=== PATIENT | female | born 1985 | race African-American/Black ===

== ENCOUNTER → 2017-02-01 | Outpatient (CLI) | payer MEDICAID ==
--- NOTE | 2017-02-01 18:08 | WOMENS IMAGING REPORT ---
EXAM DESCRIPTION: LEFT DIAGNOSTIC MAMMO W/CAD; U/S BREAST UNILATERAL, COMPL COMPLETED DATE/TIME: 02/01/2017 8:31 am; 02/01/2017 8:53 am REASON FOR STUDY: LEFT BREAST MASS; LEFT BREAST LUMP N63.0 N63 UNSPECIFIED LUMP IN BREAST * DO NOT USE * COMPARISON: Outside mammograms and ultrasound 09/16/2016 Left breast ultrasound 11/01/2016 TECHNIQUE: Standard craniocaudal, 90 mediolateral and mediolateral oblique images of the breast rec orded with digital acquisition. Cone compression of the left central breast in the CC and MLO orientations. Left breast total ultrasound LIMITATIONS: None. FINDINGS: BREAST: Left MASSES: No suspicious masses. CALCIFICATIONS: No new or suspicious calcifications. ARCHITECTURAL DISTORTION: None. DEVELOPING DENSITY: None. ASYMMETRY: None noted. OTHER: No other significant findings. Read with the assistance of CAD. .[facility] - R2 Cenova Version 1.3 .[facility] Imaging - R2 Cenova Version 1.3 .[facility] Imaging - R2 Cenova Version 2.4 .[facility] [place]2 Cenova Version 2.4 .[facility] - R2 Quality Control Chemist Version 9.2 Left breast ultrasound: Ultrasound of the entire left breast was performed. No discrete cystic or solid lesions. No worriso me acoustic absorption. No dilated ducts. No focal findings. IMPRESSION: No mammographic or sonographic evidence for malignancy left breast. BREAST DENSITY: d. The breasts are extremely dense, which lowers the sensitivity of mammography. BIRAD: 1 Negative. RECOMMENDATION: RECOMMENDED FOLLOW UP: Patient should begin bilateral screening mammography based on her lifetime risk assessment for breast cancer (Alecia model). If she is not high risk, bilateral scr eening tomosynthesis is recommended beginning at age 40 SPECIFIC INTERVENTION/IMAGING/CONSULTATION RECOMMENDED:No additional intervention/ imaging/consultati on needed at this time. COMMUNICATION:Patient notified by letter COMMENT: The patient has been notified of the results by letter per SA requirements. Additional no tification policies are in place for contacting patient with suspicious or incomplete findings. Quality ID #[id number]: The [employer] recommends an annual screening mammogram for women aged 40 years or over. This facility utilizes a reminder system to ensure that all patients receive reminder letters, and/or direct phone calls for appointments. This includes reminders for routine scr eening mammograms, diagnostic mammograms, or other Breast Imaging Interventions when appropriate. Th is patient will be placed in the appropriate reminder system. The [employer] (ACR) has developed recommendations for screening MRI of the breast s in certain patient populations, to be used in conjunction with mammography. Breast MRI surveillanc e may be appropriate for women with more than 20% lifetime risk of developing breast cancer as deter mined by genetic testing, significant family history of the disease, or history of mantle radiation f or Hodgkins Disease. ACR Practice Guidelines 2008. TECHNICAL DOCUMENTATION: FINDING NUMBER: (1) ASSESSMENT: (1) JOB ID: [id number] [employer]- All Rights Reserved
--- NOTE | 2017-02-01 18:08 | WOMENS IMAGING REPORT ---
EXAM DESCRIPTION: LEFT DIAGNOSTIC MAMMO W/CAD; U/S BREAST UNILATERAL, COMPL COMPLETED DATE/TIME: 02/01/2017 8:31 am; 02/01/2017 8:53 am REASON FOR STUDY: LEFT BREAST MASS; LEFT BREAST LUMP N63.0 N63 UNSPECIFIED LUMP IN BREAST * DO NOT USE * COMPARISON: Outside mammograms and ultrasound 09/16/2016 Left breast ultrasound 11/01/2016 TECHNIQUE: Standard craniocaudal, 90 mediolateral and mediolateral oblique images of the breast rec orded with digital acquisition. Cone compression of the left central breast in the CC and MLO orientations. Left breast total ultrasound LIMITATIONS: None. FINDINGS: BREAST: Left MASSES: No suspicious masses. CALCIFICATIONS: No new or suspicious calcifications. ARCHITECTURAL DISTORTION: None. DEVELOPING DENSITY: None. ASYMMETRY: None noted. OTHER: No other significant findings. Read with the assistance of CAD. .[facility] - R2 Cenova Version 1.3 .[facility] Imaging - R2 Cenova Version 1.3 .[facility] Imaging - R2 Cenova Version 2.4 .[facility] - R2 Cenova Version 2.4 .[facility] - R2 Chemistry Lecturer Version 9.2 Left breast ultrasound: Ultrasound of the entire left breast was performed. No discrete cystic or solid lesions. No worriso me acoustic absorption. No dilated ducts. No focal findings. IMPRESSION: No mammographic or sonographic evidence for malignancy left breast. BREAST DENSITY: d. The breasts are extremely dense, which lowers the sensitivity of mammography. BIRAD: 1 Negative. RECOMMENDATION: RECOMMENDED FOLLOW UP: Patient should begin bilateral screening mammography based on her lifetime risk assessment for breast cancer (Alecia model). If she is not high risk, bilateral scr eening tomosynthesis is recommended beginning at age 40 SPECIFIC INTERVENTION/IMAGING/CONSULTATION RECOMMENDED:No additional intervention/ imaging/consultati on needed at this time. COMMUNICATION:Patient notified by letter COMMENT: The patient has been notified of the results by letter per SA requirements. Additional no tification policies are in place for contacting patient with suspicious or incomplete findings. Quality ID #225: The [employer] recommends an annual screening mammogram for women aged 40 years or over. This facility utilizes a reminder system to ensure that all patients receive reminder letters, and/or direct phone calls for appointments. This includes reminders for routine scr eening mammograms, diagnostic mammograms, or other Breast Imaging Interventions when appropriate. Th is patient will be placed in the appropriate reminder system. The [employer] (ACR) has developed recommendations for screening MRI of the breast s in certain patient populations, to be used in conjunction with mammography. Breast MRI surveillanc e may be appropriate for women with more than 20% lifetime risk of developing breast cancer as deter mined by genetic testing, significant family history of the disease, or history of mantle radiation f or Hodgkins Disease. ACR Practice Guidelines 2008. TECHNICAL DOCUMENTATION: FINDING NUMBER: (1) ASSESSMENT: (1) JOB ID: [id number] [employer]- All Rights Reserved
== END ==
LOC: WI 08:03
PROVIDERS: ATTEND Surgery
DX: N63.20 Unspecified lump in the left breast, unspecified quadrant (principal)
CPT/HCPCS: 76641; G0206

== ENCOUNTER 2017-09-27 23:01 | Emergency (ER) | payer OTHER, MEDICAID ==
[2017-09-27 23:16] VITALS: BP 157/88
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
[2017-09-28] MEDS ORDERED: IBUPROFEN 600 MG TABLET PO ONE (01:05)
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
== END 2017-09-28 01:20 | disposition home or self-care (01) ==
LOC: ER 23:01
DX: S46.911A Strain of unspecified muscle, fascia and tendon at shoulder and upper arm level, right arm, initial encounter (principal); M25.511 Pain in right shoulder; V43.62XA Car passenger injured in collision with other type car in traffic accident, initial encounter; R03.0 Elevated blood-pressure reading, without diagnosis of hypertension
CPT/HCPCS: 99283

== ENCOUNTER → 2018-01-04 | Outpatient (CLI) | payer MEDICAID ==
[2018-01-04 13:26] LABS: ABSOLUTE EOSINOPHILS # (AUTO) 0.3 10^3/uL (0.0-0.6); ABSOLUTE MONOCYTES (AUTO) 0.6 10^3/uL (0.1-1.4); ABSOLUTE NEUT (AUTO) 5.8 10^3/uL (1.7-8.2); BASOPHILS % (AUTO) 0.4 % (0-2); EOSINOPHILS % (AUTO) 3.5 % (0-6); HEMATOCRIT 43.4 % (36.0-47.0); HEMOGLOBIN 14.8 g/dL (12.0-15.5); LYMPHOCYTES % (AUTO) 23.5 % (13-45); MEAN CORPUSCULAR HEMOGLOBIN 30.2 pg (27.0-33.4); MEAN CORPUSCULAR VOLUME 89 fl (80-97); MONOCYTES % (AUTO) 6.5 % (3-13); PLATELET COUNT 255 10^3/uL (150-450); RED BLOOD COUNT 4.89 10^6/uL (3.72-5.28); RED CELL DISTRIBUTION WIDTH 13.6 % (11.5-14.0); SEGMENTED NEUTROPHILS % (AUTO) 66.1 % (42-78); TOTAL CELLS COUNTED % (AUTO) 100 %; WHITE BLOOD COUNT 8.7 10^3/uL (4.0-10.5)
[2018-01-04 13:41] LABS: CHOLESTEROL 162.11 mg/dL (0-200); TRIGLYCERIDES 57 mg/dL (<150)
[2018-01-04 13:52] LABS: DIRECT LDL 78 mg/dL (<100)
== END ==
LOC: OD 12:54
PROVIDERS: ATTEND Advanced Practice Midwife
DX: Z13.220 Encounter for screening for lipoid disorders (principal); Z13.0 Encounter for screening for diseases of the blood and blood-forming organs and certain disorders involving the immune mechanism; Z13.29 Encounter for screening for other suspected endocrine disorder
CPT/HCPCS: 36415; 80061; 84443; 85025

== ENCOUNTER 2018-07-14 21:24 | Emergency (ER) | payer MEDICAID, OTHER ==
[2018-07-14 21:57] VITALS: BP 127/88
[2018-07-14] MEDS ORDERED: LIDOCAINE 1% INJ-PF (10 MG/ML) 30 ML SDV INJ ONE (22:25)
[2018-07-14] MEDS ORDERED: ACETAMINOPHEN 325 MG TABLET PO ONE (22:47)
[2018-07-14] MEDS ORDERED: SULFAMETHOXAZOLE/TRIMETHOPRIM 800-160 MG TABLET PO ONE (22:47)
--- NOTE | 2018-07-14 22:53 | ER Document Report ---
ED General - General Chief Complaint: Abscess Stated Complaint: SKIN LESION Time Seen by Provider: 07/14/18 22:25 Primary Care Provider: DELIA BREAUX CNM [Primary Care Provider] - Follow up as needed TRAVEL OUTSIDE OF THE [place] IN LAST 30 DAYS: No - HPI Notes: Patient is a 33-year-old female that presents to the emergency department for chief complaint of left gluteal abscess. Patient reports increased pain and swelling in her left gluteal region for the last 5 days. The pain is sharp and worse with movement and sitting. She denies relieving factors to her pain. She denies history of abscess in the past. She denies any drainage from the area. She has been doing sitz bath with Epson salt with no relief. She did take Motrin prior to coming to the ER but reports minimal relief. She denies any difficulty with bowel movements, fever and chills. Past Medical History: Negative Past Surgical History: Negative Social History: Denies drugs alcohol and tobacco Family History: Reviewed and noncontributory for presenting illness Allergies: Reviewed, see documented allergy list. REVIEW OF SYSTEMS: CONSTITUTIONAL : no fever No chills No diaphoresis No recent illness EENT: No vision changes No congestion No sore throat CARDIOVASCULAR: No chest pain No palpitations RESPIRATORY: No shortness of breath No cough No difficulty breathing GASTROINTESTINAL: No abdominal pain No nausea No vomiting No diarrhea GENITOURINARY: No dysuria No hematuria No difficulty urinating MUSCULOSKELETAL: No back pain No leg pain No arm pain SKIN: No rashes Gluteal abscess LYMPHATIC: No swollen, enlarged glands. NEUROLOGICAL: No lightheadedness No headache No weakness No paresthesias PSYCHIATRIC: No anxiety No depression PHYSICAL EXAMINATION: Vital signs reviewed, nursing noted reviewed. GENERAL: Well-appearing, well-nourished and in no acute distress. HEAD: Atraumatic, normocephalic. EYES: Eyes appear normal, extraocular movements intact, sclera anicteric, conjunctiva are normal. ENT: nares patent, oropharynx clear without exudates. Moist mucous membranes. NECK: Normal range of motion, supple without lymphadenopathy LUNGS: Breath sounds clear to auscultation bilaterally and equal. No wheezes rales or rhonchi. HEART: Regular rate and rhythm without murmurs ABDOMEN: Soft, nontender, normoactive bowel sounds. No rebound, guarding, or rigidity. No masses appreciated. EXTREMITIES: Nontender, good range of motion, no pitting or edema. NEUROLOGICAL: No focal neurological deficits. Moves all extremities spontaneously Motor and sensory grossly intact on exam. PSYCH: Normal mood, normal affect. SKIN: Warm, Dry, normal turgor, left-sided gluteal abscess measuring 5.0 cm x 3.0 cm with fluctuance and surrounding erythema - Related Data Allergies/Adverse Reactions: No Known Allergies Allergy (Verified 07/14/18 21:26) Past Medical History - Social History Smoking Status: Never Smoker Family History: Reviewed & Not Pertinent Patient has suicidal ideation: No Patient has homicidal ideation: No Renal/ Medical History: Denies: Hx Peritoneal Dialysis Physical Exam - Vital signs Vitals: Temp Pulse Resp BP Pulse Ox 98.6 F 109 H 16 127/88 H 99 07/14/18 21:55 07/14/18 21:55 07/14/18 21:55 07/14/18 21:55 07/14/18 21:55 Course - Vital Signs Vital signs: Temp Pulse Resp BP Pulse Ox 98.6 F 109 H 16 127/88 H 99 07/14/18 21:55 07/14/18 21:55 07/14/18 21:55 07/14/18 21:55 07/14/18 21:55 Procedures - Incision and Drainage Left Buttock Time completed: 22:40 Type: Simple, Single Anesthetic type: 1% Lidocaine mL's of anesthetic: 3 Blade size: 11 I&D procedure: Betadine prep applied Incision Method: Incision made by scalpel Amount/type of drainage: Copious amounts of purulent drainage Notes: 07/14/18 22:52 Patient tolerated well with no immediate complications. Loculations were broken up using curvilinear clamp. Abscess was irrigated with 250 mL's normal saline jet irrigation. Quarter inch iodoform gauze packing placed. Bulky gauze dressing with tape placed over afterwards. Discharge - Discharge Clinical Impression: Gluteal abscess Condition: Stable Disposition: HOME, SELF-CARE Instructions: Post Incision and Drainage, Abscess ([facility]), Trimethoprim-Sulfa ([facility]) Additional Instructions: Please return to the emergency department if you have any worsening, or concern of your symptoms. Please return to the emergency department if you develop chest pain, difficulty breathing, severe abdominal pain, or ongoing vomiting. Please follow-up with your primary care physician in 2-3 days and any other recommended physicians. If prescribed, take all medications as directed. If you have any questions or concerns do not hesitate to return the emergency department for evaluation. Remove the packing in 24 hours Wash the affected area 2-3 times a day with antibacterial soap and copious amounts of water Prescriptions: Sulfamethoxazole/Trimethoprim [Septra-Ds 800-160 mg Tablet] 1 tab PO BID #14 tablet Referrals: DELIA BREAUX CNM [Primary Care Provider] - Follow up in 3-5 days
== END 2018-07-14 23:15 | disposition home or self-care (01) ==
LOC: ER 21:24
DX: L02.31 Cutaneous abscess of buttock (principal)
CPT/HCPCS: 99283; 10060; A6266

== ENCOUNTER 2018-12-11 09:33 | Emergency (ER) | payer MEDICAID, OTHER ==
[2018-12-11 10:05] LABS: AMORPHOUS SEDIMENT,URINE 1+ /HPF; APPEARANCE,URINE TURBID; BILIRUBIN,URINE NEGATIVE (NEGATIVE); GLUCOSE, URINE NEGATIVE (NEGATIVE); KETONES,URINE NEGATIVE (NEGATIVE); LEUKOCYTE ESTERASE,URINE NEGATIVE (NEGATIVE); NITRITE,URINE NEGATIVE (NEGATIVE); PROTEIN,URINE NEGATIVE (NEGATIVE); URINE SPECIFIC GRAVITY 1.018; UROBILINOGEN,URINE NEGATIVE mg/dL (<2.0)
[2018-12-11 10:06] LABS: COLOR,URINE YELLOW
[2018-12-11 10:14] LABS: ABSOLUTE EOSINOPHILS # (AUTO) 0.2 10^3/uL (0.0-0.6); ABSOLUTE LYMPHOCYTES (AUTO) 1.9 10^3/uL (0.5-4.7); ABSOLUTE MONOCYTES (AUTO) 0.8 10^3/uL (0.1-1.4); ABSOLUTE NEUT (AUTO) 7.3 10^3/uL (1.7-8.2); BASOPHILS % (AUTO) 0.2 % (0-2); EOSINOPHILS % (AUTO) 2.2 % (0-6); HEMOGLOBIN 12.3 g/dL (12.0-15.5); LYMPHOCYTES % (AUTO) 18.6 % (13-45); MEAN CORPUSCULAR HEMOGLOBIN 30.1 pg (27.0-33.4); MEAN CORPUSCULAR HGB CONC 34.2 g/dL (32.0-36.0); MEAN CORPUSCULAR VOLUME 88 fl (80-97); MONOCYTES % (AUTO) 7.6 % (3-13); PLATELET COUNT 270 10^3/uL (150-450); RED CELL DISTRIBUTION WIDTH 13.1 % (11.5-14.0); SEGMENTED NEUTROPHILS % (AUTO) 71.4 % (42-78); TOTAL CELLS COUNTED % (AUTO) 100 %; WHITE BLOOD COUNT 10.3 10^3/uL (4.0-10.5)
--- NOTE | 2018-12-11 10:33 | ER Document Report ---
ED General - General Chief Complaint: OB Problem (<20wks) Stated Complaint: VAGINAL BLEEDING Time Seen by Provider: 12/11/18 09:47 Mode of Arrival: Ambulatory Information source: Patient Notes: This 33-year-old female 10 weeks presents emergency department with an episode of vaginal bleeding this morning when she went to the restroom. Patient is G5, P2. Reports last menstrual period was September 30. Patient reports she is receiving care and has been evaluated with an ultrasound. She reports this morning when she went to the restroom at work she noticed blood when she wi ped. She has not noticed it since that time. Denies fever vomiting diarrhea. Denies pain with void. Denies vaginal discharge. Reports her other pregnancies were normal no complications vaginal . Denies trauma. Reports she felt some abdominal pressure when she vomited but no pain with palpation. She reports she went to bathroom when she came to the emergency department and no blood was noted at that time. TRAVEL OUTSIDE OF THE [place] IN LAST 30 DAYS: No - HPI Onset: Just prior to arrival Onset/Duration: Sudden Quality of pain: No pain, Pressure Severity: None Pain Level: Denies Associated symptoms: None Exacerbated by: Denies Relieved by: Denies Similar symptoms previously: No Recently seen / treated by doctor: No - Related Data Allergies/Adverse Reactions: No Known Allergies Allergy (Verified 12/11/18 09:38) Past Medical History - General Information source: Patient Last Menstrual Period: September 30, 2018 - Social History Smoking Status: Unknown if Ever Smoked Cigarette use (# per day): No Frequency of alcohol use: None Drug Abuse: None Lives with: Family Family History: Reviewed & Not Pertinent Patient has suicidal ideation: No Patient has homicidal ideation: No - Medical History Medical History: Negative Renal/ Medical History: Denies: Hx Peritoneal Dialysis Surgical Hx: Negative Review of Systems - Review of Systems Notes: Review HPI for review of systems., All other systems negative Physical Exam - Vital signs Vitals: Temp Pulse Resp BP Pulse Ox 98.3 F 91 18 143/73 H 99 12/11/18 09:40 12/11/18 09:40 12/11/18 09:40 12/11/18 09:40 12/11/18 09:40 - General General appearance: Appears well, Alert, Anxious In distress: None - HEENT Head: Normocephalic Eyes: Normal Conjunctiva: Normal Neck: Normal, Supple. No: Lymphadenopathy - Respiratory Respiratory status: No respiratory distress Chest status: Nontender Breath sounds: Normal Chest palpation: Normal - Cardiovascular Rhythm: Regular Heart sounds: Normal auscultation Murmur: No - Abdominal Inspection: Gravid female Distension: No distension Bowel sounds: Normal Tenderness: Nontender Organomegaly: No organomegaly - Back Back: Normal - Extremities General upper extremity: Normal ROM General lower extremity: Normal ROM, Normal weight bearing - Neurological Neuro grossly intact: Yes Cognition: Normal Orientation: AAOx4 [place] Coma Scale Eye Opening: Spontaneous [place] Coma Scale Verbal: Oriented [place] Coma Scale Motor: Obeys Commands [place] Coma Scale Total: 15 Speech: Normal - Psychological Associated symptoms: Normal affect, Normal mood - Skin Skin Temperature: Warm Skin Moisture: Dry Skin Color: Normal Course - Re-evaluation Re-evalutation: 12/11/18 10:32 This 33-year-old 10-week female presents emergency department with one episode of vaginal bleeding this morning. Reports this never happened to her before. She is went to the restroom since arrival and is not noted any further bleeding. Denies trauma. Denies pain with void. Denies fever vomiting diarrhea. Will evaluate with labs and ultrasound. Patient instructed on plan of care and agrees. 12/11/18 15:25 US shows 10-week 5-day jacob intrauterine . Patient instructed on all results. Instructed to rest follow-up with her BEEF SPLITTER as scheduled she verbalized understanding to all instructions 12/11/18 10:00 12/11/18 10:00 MCV 88 fl (80-97) 12/11/18 10:00 MCH 30.1 pg (27.0-33.4) 12/11/18 10:00 MCHC 34.2 g/dL (32.0-36.0) 12/11/18 10:00 RDW 13.1 % (11.5-14.0) 12/11/18 10:00 Seg Neutrophils % 71.4 % (42-78) 12/11/18 10:00 Chloride 103 mmol/L (98-107) 12/11/18 10:00 Carbon Dioxide 25 mmol/L (22-30) 12/11/18 10:00 Anion Gap 8 (5-19) 12/11/18 10:00 Est GFR ( Amer) > 60 (>60) 12/11/18 10:00 Glucose 92 mg/dL (75-110) 12/11/18 10:00 Calcium 9.9 mg/dL (8.4-10.2) 12/11/18 10:00 Total Bilirubin 0.2 mg/dL (0.2-1.3) 12/11/18 10:00 AST 18 U/L (14-36) 12/11/18 10:00 Alkaline Phosphatase 56 U/L (38-126) 12/11/18 10:00 Total Protein 6.9 g/dL (6.3-8.2) 12/11/18 10:00 Albumin 4.2 g/dL (3.5-5.0) 12/11/18 10:00 Urine Color YELLOW 12/11/18 09:45 Urine Appearance TURBID 12/11/18 09:45 Urine pH 7.0 (5.0-9.0) 12/11/18 09:45 Ur Specific Cora 1.018 12/11/18 09:45 Urine Protein NEGATIVE mg/dL (NEGATIVE) 12/11/18 09:45 Urine Glucose (UA) NEGATIVE mg/dL (NEGATIVE) 12/11/18 09:45 Urine Ketones NEGATIVE mg/dL (NEGATIVE) 12/11/18 09:45 Urine Blood SMALL (NEGATIVE) H 12/11/18 09:45 Urine Nitrite NEGATIVE (NEGATIVE) 12/11/18 09:45 Ur Leukocyte Esterase NEGATIVE (NEGATIVE) 12/11/18 09:45 Urine RBC (Auto) 4 /HPF 12/11/18 09:45 Blood Type A POSITIVE 12/11/18 10:00 Obstetrics Ultrasound 12/11/18 09:47 IMPRESSION: LIVING INTRAUTERINE . EGA 10 WEEKS 5 DAYS. Trimester of : First trimester - 0 to 13 weeks. - Vital Signs Vital signs: Temp Pulse Resp BP Pulse Ox 98.1 F 86 18 130/72 H 99 12/11/18 12:22 12/11/18 12:22 12/11/18 12:22 12/11/18 12:22 12/11/18 12:22 - Laboratory Result Diagrams: 12/11/18 10:00 12/11/18 10:00 Laboratory results interpreted by me: 12/11/18 12/11/18 09:45 10:00 Sodium 135.7 L Urine Blood SMALL H Urine Ascorbic Acid 40 H - Diagnostic Test Radiology reviewed: Image reviewed, Reports reviewed Discharge - Discharge Clinical Impression: , Vaginal bleeding Condition: Stable Disposition: HOME, SELF-CARE Instructions: Bleeding During Early ([facility]), [facility], [facility] ([facility]) Additional Instructions: *You have been evaluated for vaginal bleeding, Your ultrasound showed a single intrauterine 10 weeks 5 days *Follow up with your WRAPPER CASHIER or the health department for recheck within one week *Avoid sexual intercourse until follow up *Return to ED for worsening condition, changes, needs, abdominal pain, worsening vaginal bleeding, fever Forms: Elevated Blood Pressure, Return to Work
[2018-12-11 10:37] LABS: ALBUMIN 4.2 g/dL (3.5-5.0); ALKALINE PHOSPHATASE 56 U/L (38-126); ANION GAP 8 (5-19); ASPARTATE AMINO TRANSFERASE 18 U/L (14-36); BILIRUBIN,DIRECT 0.1 mg/dL (0.0-0.4); BILIRUBIN,TOTAL 0.2 mg/dL (0.2-1.3); BLOOD UREA NITROGEN 10 mg/dL (7-20); CALCIUM 9.9 mg/dL (8.4-10.2); CARBON DIOXIDE 25 mmol/L (22-30); CHLORIDE 103 mmol/L (98-107); GLUCOSE 92 mg/dL (75-110); POTASSIUM 3.8 mmol/L (3.6-5.0); TOTAL PROTEIN 6.9 g/dL (6.3-8.2)
--- NOTE | 2018-12-11 12:01 | RADIOLOGY REPORT (SQ) ---
EXAM DESCRIPTION: U/S [id number] TRNABD 1GES W/ODOP COMPLETED DATE/TIME: 12/11/2018 11:36 am REASON FOR STUDY: 10 weeks preg, vag bleed COMPARISON: None. TECHNIQUE: Transabdominal static and realtime grayscale images acquired of the pelvis. Additional se lected spectral and color Doppler images recorded. All images stored on PACs. bHCG: Not applicable. CLINICAL DATES: 10 weeks 2 days. LIMITATIONS: None. FINDINGS: FETUS: Single Living intrauterine . ULTRASOUND EGA: 10 weeks 5 days. ULTRASOUND CHAD: 07/04/2019 EFW: Not applicable less than 20 weeks. CRL: Visualized. FHR: 171 beats per minute. SURVEY: Too early to assess. AMNIOTIC FLUID: Adequate amount. PLACENTA: Not yet developed due to early gestation. SUBCHORIONIC BLEED: No. SIZE OF BLEED: Not applicable. UTERUS: No masses. No anomalies. CERVICAL LENGTH: 4.3 cm. Closed. RIGHT ADNEXA: Ovary not identified due to poor acoustical window. No adnexal free fluid. No adnexal masses. LEFT ADNEXA: 2.1 x 1.5 x 2.1 cm cyst. Normal flow. No adnexal free fluid. No adnexal masses. FREE FLUID: None. OTHER: No other significant finding. IMPRESSION: LIVING INTRAUTERINE . EGA 10 WEEKS 5 DAYS. Trimester of : First trimester - 0 to 13 weeks. TECHNICAL DOCUMENTATION: JOB ID: [id number] [employer]- All Rights Reserved rev Reading location - IP/workstation name: [email or web address]
[2018-12-11 12:23] VITALS: BP 130/72
== END 2018-12-11 12:22 | disposition home or self-care (01) ==
LOC: ER 09:33
DX: O20.9 Hemorrhage in early pregnancy, unspecified (principal); Z3A.10 10 weeks gestation of pregnancy
CPT/HCPCS: 36415; 76801; 80053; 81001; 85025; 86900; 86901; 99284

== ENCOUNTER 2019-06-26 12:05 | Outpatient (CLI) | payer MEDICAID ==
[2019-06-26 12:56] LABS: APPEARANCE,URINE CLEAR; BILIRUBIN,URINE NEGATIVE (NEGATIVE); COLOR,URINE YELLOW; GLUCOSE, URINE NEGATIVE (NEGATIVE); KETONES,URINE NEGATIVE (NEGATIVE); LEUKOCYTE ESTERASE,URINE NEGATIVE (NEGATIVE); NITRITE,URINE NEGATIVE (NEGATIVE); PROTEIN,URINE NEGATIVE (NEGATIVE); URINE SPECIFIC GRAVITY 1.006; UROBILINOGEN,URINE NEGATIVE mg/dL (<2.0)
[2019-06-26 13:20] LABS: URINE AMPHETAMINES SCREEN NEGATIVE; URINE BARBITURATES SCREEN NEGATIVE; URINE BENZODIAZEPINES SCREEN NEGATIVE; URINE COCAINE SCREEN NEGATIVE; URINE MARIJUANA (THC) SCREEN NEGATIVE; URINE METHADONE SCREEN NEGATIVE; URINE PHENCYCLIDINE SCREEN NEGATIVE
--- NOTE | 2019-06-26 13:34 | Non Stress Test Report ---
Non Stress Test Datetime Report Generated by CPN: 06/26/2019 13:34 DEMOGRAPHIC EGA NST: 38.3 INDICATION Indication for Study (NST) Other: cramping VITAL SIGNS Temperature - NST: 98.3 Pulse - NST: 101 RESP - NST: 20 NBPSYS NST: 136 NBPDIA NST: 65 URINE RESULTS Urine Protein, NST: Negative Urine Ketones - NST: Negative Urine Glucose - NST: Negative Urine Blood - NST: Negative MONITORING Monitor Explained: Monitor Explained; Test Explained; Patient Verbalized Understanding Time on Monitor: 06/26/2019 12:30 Time off Monitor: 06/26/2019 13:20 NST Duration: 50 NST INTERVENTIONS NST Interventions: None Physician Notified NST: C. Linn, CNM BABY A: [id number] BABY A Movement : Present Contraction Frequency : irregular FHR Baseline : 135 Accelerations : 15X15 Decelerations : None Variability : Moderate 6-25bpm NST Review: Meets Criteria for Reactive NST NST Review and Verified By : Aleena Camp RNC NST Results: Reactive NST REPORT Report Trigger: Send Report
== END 2019-06-26 13:34 | disposition home or self-care (01) ==
LOC: LC 12:05
PROVIDERS: ATTEND Obstetrics & Gynecology
PROC: 4A1HXCZ Monitoring of Products of Conception, Cardiac Rate, External Approach (ICD-10-PCS; principal; 2019-06-26)
DX: O26.893 Other specified pregnancy related conditions, third trimester (principal); R10.9 Unspecified abdominal pain; Z3A.38 38 weeks gestation of pregnancy
CPT/HCPCS: 59025; 80307; 81001

== ENCOUNTER 2019-06-30 10:40 | Emergency (ER) | payer MEDICAID ==
[2019-06-30 10:47] VITALS: BP 133/77
--- NOTE | 2019-06-30 10:47 | ER Document Report ---
ED Medical Screen (RME) - General Chief Complaint: Abscess Stated Complaint: ABSCESS Time Seen by Provider: 06/30/19 10:43 Mode of Arrival: Ambulatory Information source: Patient Notes: 34-year-old female presents to ED for an pilonidal cyst. She is 39 weeks 1 day . I will put her back into the main section for this I&D or treatment as she is 39 weeks . 3 para 2 [facility]. I have greeted and performed a rapid initial assessment of this patient. A comprehensive ED assessment and evaluation of the patient, analysis of test results and completion of medical decision making process will be conducted by an additional ED providers. TRAVEL OUTSIDE OF THE [place] IN LAST 30 DAYS: No - Related Data Allergies/Adverse Reactions: No Known Allergies Allergy (Verified 06/26/19 12:47) Past Medical History Renal/ Medical History: Denies: Hx Peritoneal Dialysis Physical Exam - Vital signs Vitals: Temp Pulse Resp BP Pulse Ox 98.0 F 103 H 20 133/77 H 99 06/30/19 10:43 06/30/19 10:43 06/30/19 10:43 06/30/19 10:43 06/30/19 10:43 Course - Vital Signs Vital signs: Temp Pulse Resp BP Pulse Ox 98.0 F 103 H 20 133/77 H 99 06/30/19 10:43 06/30/19 10:43 06/30/19 10:43 06/30/19 10:43 06/30/19 10:43
--- NOTE | 2019-06-30 11:28 | ER Document Report ---
ED General - General Chief Complaint: Abscess Stated Complaint: ABSCESS Time Seen by Provider: 06/30/19 10:43 Primary Care Provider: BETSY ERAZO MD [ACTIVE STAFF] - Follow up as needed Mode of Arrival: Ambulatory Notes: 34 year old female is 39 weeks gestation with due date 07/07/19 and has had 2-3 days of increasing pain at sacral region similar to previous pilonidal cyst. She tells me she was seen here previously in the ED and had this drained/ opened. No issues with OB care and Dr. Erazo is the local OB physician. TRAVEL OUTSIDE OF THE [place] IN LAST 30 DAYS: No - HPI Onset: Last week Onset/Duration: Gradual Quality of pain: Sharp, Stabbing Severity: Moderate Pain Level: 3 Associated symptoms: None Exacerbated by: Denies Relieved by: Denies - Related Data Allergies/Adverse Reactions: No Known Allergies Allergy (Verified 06/26/19 12:47) Past Medical History - General Information source: Patient - Social History Smoking Status: Never Smoker Family History: Reviewed & Not Pertinent Patient has suicidal ideation: No Patient has homicidal ideation: No Renal/ Medical History: Denies: Hx Peritoneal Dialysis Review of Systems - Review of Systems Constitutional: No symptoms reported EENT: No symptoms reported Cardiovascular: No symptoms reported Respiratory: No symptoms reported Gastrointestinal: No symptoms reported Genitourinary: No symptoms reported Female Genitourinary: No symptoms reported Musculoskeletal: No symptoms reported Skin: No symptoms reported Hematologic/Lymphatic: No symptoms reported Neurological/Psychological: No symptoms reported Physical Exam - Vital signs Vitals: Temp Pulse Resp BP Pulse Ox 98.0 F 103 H 20 133/77 H 99 06/30/19 10:43 06/30/19 10:43 06/30/19 10:43 06/30/19 10:43 06/30/19 10:43 Interpretation: Normal - General General appearance: Appears well, Alert - HEENT Head: Normocephalic, Atraumatic Eyes: Normal Pupils: PERRL - Respiratory Respiratory status: No respiratory distress Chest status: Nontender Breath sounds: Normal Chest palpation: Normal - Cardiovascular Rhythm: Regular Heart sounds: Normal auscultation Murmur: No - Abdominal Inspection: Normal Distension: No distension Bowel sounds: Normal Tenderness: Nontender Organomegaly: No organomegaly - Back Back: Normal, Nontender - Extremities General upper extremity: Normal inspection, Nontender, Normal color, Normal ROM, Normal temperature General lower extremity: Normal inspection, Nontender, Normal color, Normal ROM, Normal temperature, Normal weight bearing. No: Rod's sign - Neurological Neuro grossly intact: Yes Cognition: Normal Orientation: AAOx4 [place] Coma Scale Eye Opening: Spontaneous [place] Coma Scale Verbal: Oriented [place] Coma Scale Motor: Obeys Commands [place] Coma Scale Total: 15 Speech: Normal Motor strength normal: LUE, RUE, LLE, RLE Sensory: Normal - Psychological Associated symptoms: Normal affect, Normal mood - Skin Skin Temperature: Warm Skin Moisture: Dry Skin Color: Normal Course - Re-evaluation Re-evalutation: 06/30/19 12:03 MDM 34 year old with left sided gluteal abcess. Drained here easily and pt tolerated well. Discussed follow up and she expressed understanding. - Vital Signs Vital signs: Temp Pulse Resp BP Pulse Ox 98.0 F 103 H 20 133/77 H 99 06/30/19 10:43 06/30/19 10:43 06/30/19 10:43 06/30/19 10:43 06/30/19 10:43 Procedures - Incision and Drainage Left Buttock Time completed: 12:00 Type: Simple Anesthetic type: 1% Lidocaine mL's of anesthetic: 9 Blade size: 11 I&D procedure: Betadine prep applied, Iodoform packing placed Incision Method: Incision made by scalpel Amount/type of drainage: Moderate amount of purulent drainage expressed after incision with #blade Notes: 06/30/19 12:07 Pt tolerated well without apparent complications. Discussed follow up Monday and calling Monday and she expressed understanding. Discharge - Discharge Clinical Impression: Pilonidal abscess, Third trimester Condition: Good Disposition: HOME, SELF-CARE Instructions: Post Incision and Drainage Additional Instructions: Call the Ob doctors on Friday 06/30. Take tylenol as needed for pain. Please return here for any problems or any concerns. Forms: Return to Work Referrals: BETSY ERAZO MD [ACTIVE STAFF] - Follow up as needed
[2019-06-30] MEDS ORDERED: LIDOCAINE 1% INJ (10 MG/ML) 10 ML MDV INJ ONE (11:39)
[2019-06-30] MEDS ORDERED: ACETAMINOPHEN 325 MG TABLET PO ONE (12:25)
== END 2019-06-30 12:31 | disposition home or self-care (01) ==
LOC: ER 10:40
DX: O99.713 Diseases of the skin and subcutaneous tissue complicating pregnancy, third trimester (principal); L05.01 Pilonidal cyst with abscess; Z3A.39 39 weeks gestation of pregnancy
CPT/HCPCS: 99283; 10080; J3490 ×2

== ENCOUNTER 2019-07-04 07:57 | Inpatient (IN) | payer MEDICAID ==
[2019-07-04] MEDS ORDERED: PENICILLIN G POTASSIUM 5,000,000 UNIT in DEXTROSE 5%-WATER 100 ML IV ONE (08:31)
[2019-07-04 08:42] LABS: APPEARANCE,URINE CLOUDY; BILIRUBIN,URINE NEGATIVE (NEGATIVE); COLOR,URINE YELLOW; GLUCOSE, URINE NEGATIVE (NEGATIVE); KETONES,URINE NEGATIVE (NEGATIVE); LEUKOCYTE ESTERASE,URINE NEGATIVE (NEGATIVE); NITRITE,URINE NEGATIVE (NEGATIVE); PROTEIN,URINE NEGATIVE (NEGATIVE); URINE SPECIFIC GRAVITY 1.017; UROBILINOGEN,URINE NEGATIVE mg/dL (<2.0)
[2019-07-04] MEDS ORDERED: PENICILLIN G-K 5 MILLION UNIT VIAL ONE ×2 (08:47→12:33)
[2019-07-04 09:05] LABS: URINE AMPHETAMINES SCREEN NEGATIVE; URINE BARBITURATES SCREEN NEGATIVE; URINE BENZODIAZEPINES SCREEN NEGATIVE; URINE COCAINE SCREEN NEGATIVE; URINE MARIJUANA (THC) SCREEN NEGATIVE; URINE METHADONE SCREEN NEGATIVE; URINE PHENCYCLIDINE SCREEN NEGATIVE
[2019-07-04] MEDS ORDERED: RINGERS SOLUTION,LACTATED 1,000 ML IV ONE (11:58)
[2019-07-04] MEDS ORDERED: MISOPROSTOL 0.2 MG TABLET ONE (12:23)
[2019-07-04] MEDS ORDERED: OXYTOCIN 10 UNIT/ML VIAL ONE (12:23)
[2019-07-04] MEDS ORDERED: OXYTOCIN/NORMAL SALINE 20 UNIT/1,000 ML RTUINJ ONE (12:24)
[2019-07-04] MEDS ORDERED: LIDOCAINE 1% INJ-PF (10 MG/ML) 30 ML SDV ONE (12:24)
[2019-07-04] MEDS ORDERED: PENICILLIN G POTASSIUM 2,500,000 UNIT in DEXTROSE 5%-WATER 50 ML IV SCH (12:30)
[2019-07-04 12:53] LABS: ABSOLUTE EOSINOPHILS # (AUTO) 0.1 10^3/uL (0.0-0.6); ABSOLUTE LYMPHOCYTES (AUTO) 1.5 10^3/uL (0.5-4.7); ABSOLUTE MONOCYTES (AUTO) 0.6 10^3/uL (0.1-1.4); ABSOLUTE NEUT (AUTO) 8.6 10^3/uL (1.7-8.2); ALBUMIN 3.9 g/dL (3.5-5.0); ALKALINE PHOSPHATASE 134 U/L (38-126); ANION GAP 10 (5-19); ASPARTATE AMINO TRANSFERASE 32 U/L (14-36); BASOPHILS % (AUTO) 0.1 % (0-2); BLOOD UREA NITROGEN 7 mg/dL (7-20); CALCIUM 9.8 mg/dL (8.4-10.2); CARBON DIOXIDE 23 mmol/L (22-30); CHLORIDE 102 mmol/L (98-107); EOSINOPHILS % (AUTO) 0.7 % (0-6); GLUCOSE 107 mg/dL (75-110); LYMPHOCYTES % (AUTO) 14.1 % (13-45); POTASSIUM 4.3 mmol/L (3.6-5.0); SEGMENTED NEUTROPHILS % (AUTO) 79.1 % (42-78); TOTAL CELLS COUNTED % (AUTO) 100 %
[2019-07-04 12:54] LABS: BILIRUBIN,DIRECT 0.3 mg/dL (0.0-0.4); BILIRUBIN,TOTAL 0.3 mg/dL (0.2-1.3); HEMATOCRIT 39.7 % (36.0-47.0); HEMOGLOBIN 13.4 g/dL (12.0-15.5); PLATELET COUNT 235 10^3/uL (150-450); RED BLOOD COUNT 4.38 10^6/uL (3.72-5.28); RED CELL DISTRIBUTION WIDTH 14.4 % (11.5-14.0); TOTAL PROTEIN 7.3 g/dL (6.3-8.2); WHITE BLOOD COUNT 10.9 10^3/uL (4.0-10.5)
[2019-07-04 12:55] LABS: MEAN CORPUSCULAR HEMOGLOBIN 30.6 pg (27.0-33.4); MEAN CORPUSCULAR HGB CONC 33.8 g/dL (32.0-36.0); MEAN CORPUSCULAR VOLUME 91 fl (80-97)
[2019-07-04] MEDS ORDERED: DIBUCAINE 1% OINTMENT 28 GM TP PRN (14:18)
[2019-07-04] MEDS ORDERED: ZOLPIDEM TARTRATE 5 MG TABLET PO PRN (14:18)
[2019-07-04] MEDS ORDERED: PROMETHAZINE HCL INJ 25 MG/1 ML VIAL IV PRN (14:18)
[2019-07-04] MEDS ORDERED: ACETAMINOPHEN 650 MG SUPP.RECT PR PRN (14:18)
[2019-07-04] MEDS ORDERED: PROMETHAZINE HCL 25 MG TABLET PO PRN (14:18)
[2019-07-04] MEDS ORDERED: OXYTOCIN/NORMAL SALINE 20 UNIT/1,000 ML RTUINJ IV PRN (14:18)
[2019-07-04] MEDS ORDERED: NA PHOS,M-B/NA PHOS,DI-BA (ADULT) 133 ML ENEMA PR PRN (14:18)
[2019-07-04] MEDS ORDERED: MAGNESIUM HYDROXIDE SUSP 30 ML UDCUP PO PRN (14:18)
[2019-07-04] MEDS ORDERED: BENZOCAINE/MENTHOL AEROSOL SPRAY 56 ML TOP PRN (14:18)
[2019-07-04] MEDS ORDERED: GLYCERIN/WITCH HAZEL LEAF 1 EACH MED..WIPE TP PRN (14:18)
[2019-07-04] MEDS ORDERED: MEASLES,MUMPS&RUBELLA VACC/PF 0.5 ML VIAL SUBCUT PRN (14:18)
[2019-07-04] MEDS ORDERED: ACETAMINOPHEN WITH CODEINE #3 TABLET PO PRN (14:18)
[2019-07-04] MEDS ORDERED: PSEUDOEPHEDRINE HCL 30 MG TABLET PO PRN (14:18)
[2019-07-04] MEDS ORDERED: DIPHENHYDRAMINE HCL 25 MG CAPSULE PO PRN (14:18)
[2019-07-04] MEDS ORDERED: PROMETHAZINE HCL 25 MG SUPP.RECT PR PRN (14:18)
[2019-07-04] MEDS ORDERED: DIPH/PERTUSS(ACELL)/TETANUS VAC/PF 0.5 ML SYR (>=10YO) IM PRN (14:18)
--- NOTE | 2019-07-04 14:25 | Admission Physical ---
Datetime Report Generated by CPN: 07/04/2019 14:24 CURRENT ADMISSION Chief Complaint: Uterine Contractions Indication for Induction: Not Applicable Admit Impression : Term, Intrauterine ; Active Labor Admit Impression- Other: GHTN Admit Plan: Admit to Unit; Initiate Labor Protocol ALLERGIES Medication Allergies: No Medication Allergies: No Known Allergies (06/26/2019) Latex: No Latex Allergies OBSTETRICAL HISTORY EDC: 07/07/2019 00:00 : 7 Para: 2 Term: 2 : 0 SAB: 1 IAB: 3 Ectopic: 0 Livin Cesareans: 0 VBACs: 0 Multiple Births: 0 Gestational Diabetes: No Rh Sensitization: No Incompetent Cervix: No SVETLANA: No Infertility: No ART Treatment: No Uterine Anomaly: No IUGR: No Hx Previous C/S: No Macrosomia: No Hx Loss/Stillborn: No PIH: No Hx : No Placenta Previa/Abruption: No Depression/PP Depression: No PTL/PROM: No Post Hemorrhage: No Current Procedures: Ultrasound Obstetrical History Comments: G1- G2-IAB G3-IAB G4-IAB G5- G6-SAB G7-Current SEE RECORDS Alcohol: No Marijuana : No Cocaine: No Other Illicit Drugs: No Cigarettes: Former Smoker. [id number] MEDICAL HISTORY Diabetes: No Blood Transfusion: No Pulmonary Disease (Asthma, TB): No Breast Disease: No Hypertension: No Squirrel Man Surgery: No Heart Disease: No Hosp/Surgery: No Autoimmune Disorder: No Anesthetic Complications: No Kidney Disease: No Abnormal Pap Smear: Yes Neuro/Epilepsy: No Psychiatric Disorders: No Other Medical Diseases: No Hepatitis/Liver Disease: No Significant Family History: No Varicosities/Phlebitis: No Trauma/Violence : No Thyroid Dysfunction: No INFECTIOUS HISTORY Gonorrhea: No Genital Herpes: No Chlamydia: No Tuberculosis: No Syphilis: No Hepatitis: No HIV/AIDS Exposure: No Rash or Viral Illness: No HPV: No PHYSICAL EXAM General: Normal HEENT: Normal Neurologic: Normal Thyroid: Deferred Heart: Normal Lungs: Normal Breast: Deferred Back: Normal Abdomen: Normal Genitourinary Exam: Normal Extremities: Normal DTRs: Normal Pelvic Type: Adequate Physical Exam Comments: pelvis proven Vital Signs: Reviewed Details Vital Signs: mild range elevated BPs VAGINAL EXAM Dilatation: 5 Effacement: 90 Station: -2 Contraction Comments: q6mins MEMBRANES Pooling: Negative Membranes: Bulging FETUS A EGA: 39.4 Monitoring: External US FHR- Baseline: 130 Variability: Moderate 6-25bpm Accelerations: 15X15 Decelerations: None FHR Category: Category I Estimated Weight (gm): 3300 Presentation: Vertex Presentation- Other: by SCOTTIE Admit Comment: at 39w4d presented with UC, also GHTN. AROM for mec. P:routine labor care. pre-e labs, anticipate PLANS FOR LABOR AND DELIVERY Labor and Delivery: None Pain Management: Natural Feeding Preference: Both Benefit of Breast Feed Discussed: Yes Circumcision: N/A INFORMED CONSENT Assignment: Todd Koch MD Signature: with User ID: [email or web address] : with User ID: [email or web address]
[2019-07-04] MEDS ORDERED: IBUPROFEN 800 MG TABLET ONE (14:49)
[2019-07-04] MEDS: IBUPROFEN 800 MG TABLET PO SCH ×2 (14:49→22:10)
--- NOTE | 2019-07-04 15:11 | Delivery Summary ---
Del Sum A-C Datetime Report Generated by CPN: 07/04/2019 15:10 DELIVERY PERSONNEL DELIVERY PERSONNEL: [id number] Nurse Master Scheduler Certified:: Shaniqua Eddy CNM Labor and Delivery Nurse:: Patria Haley RN Nursery Nurse:: Mikala Rodriguez RN Air Pollution Inspector/COLD STRIP ROLLER: Yesenia Feliz EXECUTIVE SERVICES ADMINISTRATOR Additional Personnel: : Ashely Iniguez RN MATERNAL INFORMATION Delivery Anesthesia: None Medications After Delivery: Pitocin Bolus-Please Comment; Pitocin Drip 20 Units/1000ml NSS Meds After Delivery Comment: 20 Units Pitocin/1000ml NS Delivery QBL: 100 Maternal Complications: Precipitous Labor (<3hrs) Provider Comments: DIRECT OA, VIABLE FEMALE WITH SPONTANEOUS CRY, ABNORMALLY THICK WORTONS JELLY NOTED ON CORD. CORD DOUBLE CLAMPED AND CUT, 3VC NOTED. ADHERENT PLACENTA REQUIRED MANUAL REMOVAL. UTERUS EXPLORED. NO LACERATIONS. MOTHER AND STABLE IN L_D#2. LABOR SUMMARY EDC: 07/07/2019 00:00 No. Babies in Womb: 1 Attempted: No Labor Anesthesia: None LABOR INFORMATION Reason for Induction: Gestational Hypertension Onset of Labor: 07/04/2019 12:08 Complete Dilatation: 07/04/2019 13:48 Oxytocin: N/A Group B Beta Strep: Positive Antibiotics # of Doses: 2 Antibiotics Time of Last Dose: 1243 Name of Antibiotic Given: Penicillin G Steroids Given: None Reason Steroids Not Administered: Not Applicable MEMBRANES Membranes Rupture Method: Artificial Rupture of Membranes: 07/04/2019 12:08 Length of Rupture (hr): 1.77 Amniotic Fluid Color: Light Meconium Amniotic Fluid Amount: Moderate Amniotic Fluid Odor: Normal STAGES OF LABOR Stage 1 hr: 1 Stage 1 min: 40 Stage 2 hr: 0 Stage 2 min: 6 Stage 3 hr: 0 Stage 3 min: 18 Total Time in Labor hr: 2 Total Time in Labor min: 4 VAGINAL DELIVERY Episiotomy: None Laceration #1: None Laceration Extension #1: N/A Laceration Repair: Not Applicable Sponge Count Correct: N/A Sharps Count Correct: N/A BABY A INFORMATION Delivery Date/Time: 07/04/2019 13:54 Method of Delivery: Vaginal Nurse Controlled Delivery: No Born in Route : No : N/A Forceps: N/A Vacuum Extraction: N/A Shoulder Dystocia : No PRESENTATION/POSITION BABY A Presentation: Cephalic Cephalic Presentation: Vertex Vertex Position: Left Occipital Anterior Breech Presentation: N/A PLACENTA INFORMATION BABY A Placenta Delivery Time : 07/04/2019 14:12 Placenta Method of Delivery: Manual Removal Placenta Status: Delivered SCORES BABY A Heart Rate 1 min: >100 bpm Resp Effort 1 min: Good Cry Reflex Irritability 1 min: Cough or Sneeze or Pulls Away Muscle Tone 1 min: Active Motion Color 1 min: Body [place], Extremities Blue SCORE 1 MIN: 9 Heart Rate 5 min: >100 bpm Resp Effort 5 min: Good Cry Reflex Irritability 5 min: Cough or Sneeze or Pulls Away Muscle Tone 5 min: Active Motion Color 5 min: Completely [place] SCORE 5 MIN: 10 INFORMATION BABY A Gestational Age at Delivery: 39.4 Gestational Status: Full Term- 39- 40.6 Weeks Outcome : Liveborn Condition : Stable Sex: Female IDENTIFICATION BABY A Verification Date/Time: 07/04/2019 14:24 ID Band Number: [id number] Mother's Name Verified: Yes Infant RN Verifying : MMsantiagoy, RN, AFRennyston, RN WEIGHT/LENGTH BABY A Infant Birthweight (gm): 3400 Weight (lb): 7 Infant Weight (oz): 8 Length (in): 20.00 Infant Length (cm): 50.80 CORD INFORMATION BABY A No. Cord Vessels: 3 Nuchal Cord : N/A Cord Blood Taken: Yes-For Storage (Mom's Blood type +) Suction: Mouth ASSESSMENT BABY A Infant Complications: Meconium Physical Findings at Delivery: Within Normal Limits Infant Respirations: Appears Normal Skin to Skin: Yes Skin to Skin Time (min): 45 Electro Mechanical Designer/ALS Called : No Infant Care By: Mikala Rodriguez RN Transferred To: Remains with Mother BABY B INFORMATION : N/A SIGNATURES Assignment: Todd Koch MD Signature: with User ID: [email or web address] : with User ID: [email or web address] : I was personally available for consultation and serving as supervising physician for the MLP.
[2019-07-04] MEDS: FERROUS SULFATE 325 MG TABLET PO SCH (19:21)
[2019-07-04] MEDS: DOCUSATE SODIUM 100 MG CAPSULE PO SCH (19:21)
[2019-07-04] MEDS: ACETAMINOPHEN WITH CODEINE #3 TABLET PO PRN (19:22)
[2019-07-04] MEDS ORDERED: FAMOTIDINE 20 MG TABLET ONE (21:35)
[2019-07-04] MEDS: FAMOTIDINE 20 MG TABLET PO SCH (22:10)
[2019-07-05] MEDS: ACETAMINOPHEN WITH CODEINE #3 TABLET PO PRN ×2 (03:03→15:28)
[2019-07-05] MEDS: IBUPROFEN 800 MG TABLET PO SCH ×3 (06:45→21:35)
[2019-07-05 07:14] LABS: ABSOLUTE EOSINOPHILS # (AUTO) 0.1 10^3/uL (0.0-0.6); ABSOLUTE LYMPHOCYTES (AUTO) 2.2 10^3/uL (0.5-4.7); ABSOLUTE MONOCYTES (AUTO) 0.9 10^3/uL (0.1-1.4); ABSOLUTE NEUT (AUTO) 8.6 10^3/uL (1.7-8.2); BASOPHILS % (AUTO) 0.2 % (0-2); HEMATOCRIT 35.6 % (36.0-47.0); HEMOGLOBIN 12.3 g/dL (12.0-15.5); LYMPHOCYTES % (AUTO) 18.7 % (13-45); MEAN CORPUSCULAR HEMOGLOBIN 30.8 pg (27.0-33.4); MEAN CORPUSCULAR HGB CONC 34.5 g/dL (32.0-36.0); MEAN CORPUSCULAR VOLUME 89 fl (80-97); MONOCYTES % (AUTO) 7.8 % (3-13); PLATELET COUNT 228 10^3/uL (150-450); RED BLOOD COUNT 3.99 10^6/uL (3.72-5.28); RED CELL DISTRIBUTION WIDTH 14.2 % (11.5-14.0); SEGMENTED NEUTROPHILS % (AUTO) 72.3 % (42-78); TOTAL CELLS COUNTED % (AUTO) 100 %; WHITE BLOOD COUNT 11.9 10^3/uL (4.0-10.5)
[2019-07-05] MEDS: DOCUSATE SODIUM 100 MG CAPSULE PO SCH ×2 (09:59→17:36)
[2019-07-05] MEDS: SENNOSIDES/DOCUSATE 8.6-50 MG 1 EACH TABLET PO SCH (09:59)
[2019-07-05] MEDS: FERROUS SULFATE 325 MG TABLET PO SCH ×2 (09:59→17:36)
[2019-07-05] MEDS: PRENATAL VITAMIN W DHA CAPSULE PO SCH (09:59)
[2019-07-05] MEDS: FAMOTIDINE 20 MG TABLET PO SCH ×2 (10:00→21:36)
--- NOTE | 2019-07-05 11:28 | PDOC PROGRESS REPORT ---
Subjective-OB Progress Note for:: 07/05/19 Subjective: reports bleeding slowing, pain controlled with current meds. denies needs Physical Exam (OB) Vital Signs: Temp Pulse Resp BP Pulse Ox 98.2 F 66 18 121/68 100 07/05/19 07:15 07/05/19 07:15 07/05/19 07:15 07/05/19 07:15 07/05/19 07:15 Intake & Output 07/04/19 07/05/19 07/06/19 06:59 06:59 06:59 Intake Total 2522 Balance 2522 Weight 89.1 kg - Abdomen Description: Soft, Round Hernia Present: No Fundal Description: Firm, Midline Fundal Height: u/u - u/2 - Abdominal Distension: No distension Tenderness: Nontender - Extremities Lower extremities: Rod's sign - neg Ankle: Normal, Nontender Objective-Diagnostic Laboratory: 07/05/19 06:50 07/04/19 11:37 07/04/19 07/04/19 07/04/19 11:37 11:37 11:37 WBC 10.9 H RBC 4.38 Hgb 13.4 Hct 39.7 MCV 91 MCH 30.6 MCHC 33.8 RDW 14.4 H Plt Count 235 Seg Neutrophils % 79.1 H Sodium 134.6 L Potassium 4.3 Chloride 102 Carbon Dioxide 23 Anion Gap 10 BUN 7 Creatinine 0.50 L Est GFR ( Amer) > 60 Glucose 107 Uric Acid 4.0 Calcium 9.8 Total Bilirubin 0.3 AST 32 Alkaline Phosphatase 134 H Total Protein 7.3 Albumin 3.9 Blood Type A POSITIVE Antibody Screen NEGATIVE 07/05/19 06:50 WBC 11.9 H RBC 3.99 Hgb 12.3 Hct 35.6 L MCV 89 MCH 30.8 MCHC 34.5 RDW 14.2 H Plt Count 228 Seg Neutrophils % 72.3 Sodium Potassium Chloride Carbon Dioxide Anion Gap BUN Creatinine Est GFR ( Amer) Glucose Uric Acid Calcium Total Bilirubin AST Alkaline Phosphatase Total Protein Albumin Blood Type Antibody Screen Assessment and Plan(PN) - Assessment and Plan (1) Gestational hypertension Is this a current diagnosis for this admission?: Yes (2) Spontaneous onset of labor Is this a current diagnosis for this admission?: Yes (3) Pilonidal abscess Is this a current diagnosis for this admission?: Yes (4) Third trimester Is this a current diagnosis for this admission?: Yes - Time Spent with Patient Time with patient: Less than 15 minutes - Disposition Anticipated Discharge: Home Within: within 24 hours
[2019-07-05] MEDS ORDERED: FAMOTIDINE 20 MG TABLET ONE (21:16)
[2019-07-06] MEDS: ACETAMINOPHEN WITH CODEINE #3 TABLET PO PRN ×2 (01:13→08:53)
[2019-07-06] MEDS: IBUPROFEN 800 MG TABLET PO SCH (05:34)
[2019-07-06] MEDS ORDERED: MEDROXYPROGESTERONE ACET INJ 150 MG/1 ML VIAL IM ONE ×2 (08:45→11:30)
--- NOTE | 2019-07-06 08:53 | PDOC DISCHARGE SUMMARY ---
Impression - Admit/DC Date/PCP Admission Date/Primary Care Provider: 07/04/19 11:59 Discharge Date: 07/06/19 - Discharge Diagnosis (1) Gestational hypertension Is this a current diagnosis for this admission?: Yes (2) Spontaneous onset of labor Is this a current diagnosis for this admission?: Yes (3) Pilonidal abscess Is this a current diagnosis for this admission?: Yes (4) Third trimester Is this a current diagnosis for this admission?: Yes - Additional Information Discharge Diet: Regular Discharge Activity: Balance Activity w/Rest, Pelvic Rest Prescriptions: Cephalexin Monohydrate [Keflex 500 mg Capsule] 500 mg PO Q12 #10 capsule Ibuprofen [Motrin 800 mg Tablet] 800 mg PO Q8HP PRN #60 tablet PRN Reason: Home Medications: Vitamin [-U Multiple Vitamin Capsule] 1 cap PO DAILY 06/26/19 Cephalexin Monohydrate [Keflex 500 mg Capsule] 500 mg PO Q12 #10 capsule 07/06/19 Ibuprofen [Motrin 800 mg Tablet] 800 mg PO Q8HP PRN #60 tablet 07/06/19 HPI Gestational Age: 39+4 Reason(s) for Admission: Onset of Labor - also gestational hypertension Procedures: NST Intrapartum Procedure(s): Spontaneous Vaginal Delivery Results Laboratory Results: WBC 11.9 10^3/uL (4.0-10.5) H 07/05/19 06:50 RBC 3.99 10^6/uL (3.72-5.28) 07/05/19 06:50 Hgb 12.3 g/dL (12.0-15.5) 07/05/19 06:50 Hct 35.6 % (36.0-47.0) L 07/05/19 06:50 MCV 89 fl (80-97) 07/05/19 06:50 MCH 30.8 pg (27.0-33.4) 07/05/19 06:50 MCHC 34.5 g/dL (32.0-36.0) 07/05/19 06:50 RDW 14.2 % (11.5-14.0) H 07/05/19 06:50 Plt Count 228 10^3/uL (150-450) 07/05/19 06:50 Lymph % (Auto) 18.7 % (13-45) 07/05/19 06:50 [place] % (Auto) 7.8 % (3-13) 07/05/19 06:50 Eos % (Auto) 1.0 % (0-6) 07/05/19 06:50 Baso % (Auto) 0.2 % (0-2) 07/05/19 06:50 Absolute Neuts (auto) 8.6 10^3/uL (1.7-8.2) H 07/05/19 06:50 Absolute Lymphs (auto) 2.2 10^3/uL (0.5-4.7) 07/05/19 06:50 Absolute Monos (auto) 0.9 10^3/uL (0.1-1.4) 07/05/19 06:50 Absolute Eos (auto) 0.1 10^3/uL (0.0-0.6) 07/05/19 06:50 Absolute Basos (auto) 0.0 10^3/uL (0.0-0.2) 07/05/19 06:50 Seg Neutrophils % 72.3 % (42-78) 07/05/19 06:50 Sodium 134.6 mmol/L (137-145) L 07/04/19 11:37 Potassium 4.3 mmol/L (3.6-5.0) 07/04/19 11:37 Chloride 102 mmol/L (98-107) 07/04/19 11:37 Carbon Dioxide 23 mmol/L (22-30) 07/04/19 11:37 Anion Gap 10 (5-19) 07/04/19 11:37 BUN 7 mg/dL (7-20) 07/04/19 11:37 Creatinine 0.50 mg/dL (0.52-1.25) L 07/04/19 11:37 Est GFR ( Amer) > 60 (>60) 07/04/19 11:37 Est GFR (MDRD) Non-Af > 60 (>60) 07/04/19 11:37 Glucose 107 mg/dL (75-110) 07/04/19 11:37 Uric Acid 4.0 mg/dL (2.5-6.2) 07/04/19 11:37 Calcium 9.8 mg/dL (8.4-10.2) 07/04/19 11:37 Total Bilirubin 0.3 mg/dL (0.2-1.3) 07/04/19 11:37 Direct Bilirubin 0.3 mg/dL (0.0-0.4) 07/04/19 11:37 Neonat Total Bilirubin Not Reportable 07/04/19 11:37 Neonat Direct Bilirubin Not Reportable 07/04/19 11:37 Neonat Indirect Bili Not Reportable 07/04/19 11:37 AST 32 U/L (14-36) 07/04/19 11:37 ALT 38 U/L (<35) H 07/04/19 11:37 Alkaline Phosphatase 134 U/L (38-126) H 07/04/19 11:37 Lactate Dehydrogenase 189 U/L (120-246) 07/04/19 11:37 Total Protein 7.3 g/dL (6.3-8.2) 07/04/19 11:37 Albumin 3.9 g/dL (3.5-5.0) 07/04/19 11:37 Urine Color YELLOW 07/04/19 08:03 Urine Appearance CLOUDY 07/04/19 08:03 Urine pH 7.0 (5.0-9.0) 07/04/19 08:03 Ur Specific [place] 1.017 07/04/19 08:03 Urine Protein NEGATIVE mg/dL (NEGATIVE) 07/04/19 08:03 Urine Glucose (UA) NEGATIVE mg/dL (NEGATIVE) 07/04/19 08:03 Urine Ketones NEGATIVE mg/dL (NEGATIVE) 07/04/19 08:03 Urine Blood NEGATIVE (NEGATIVE) 07/04/19 08:03 Urine Nitrite NEGATIVE (NEGATIVE) 07/04/19 08:03 Urine Bilirubin NEGATIVE (NEGATIVE) 07/04/19 08:03 Urine Urobilinogen NEGATIVE mg/dL (<2.0) 07/04/19 08:03 Ur Leukocyte Esterase NEGATIVE (NEGATIVE) 07/04/19 08:03 Urine Ascorbic Acid NEGATIVE (NEGATIVE) 07/04/19 08:03 Urine Opiates Screen NEGATIVE 07/04/19 08:03 Urine Methadone Screen NEGATIVE 07/04/19 08:03 Ur Barbiturates Screen NEGATIVE 07/04/19 08:03 Ur Phencyclidine Scrn NEGATIVE 07/04/19 08:03 Ur Amphetamines Screen NEGATIVE 07/04/19 08:03 U Benzodiazepines Scrn NEGATIVE 07/04/19 08:03 Urine Cocaine Screen NEGATIVE 07/04/19 08:03 U Marijuana (THC) Screen NEGATIVE 07/04/19 08:03 RPR NONREACTIVE (NONREACTIVE) 07/04/19 11:37 Blood Type A POSITIVE 07/04/19 11:37 Antibody Screen NEGATIVE 07/04/19 11:37 Plan Plan of Treatment: follow up in one week at [facility] for BP check
[2019-07-06] MEDS: FERROUS SULFATE 325 MG TABLET PO SCH (09:23)
[2019-07-06] MEDS: SENNOSIDES/DOCUSATE 8.6-50 MG 1 EACH TABLET PO SCH (09:23)
[2019-07-06] MEDS: DOCUSATE SODIUM 100 MG CAPSULE PO SCH (09:23)
[2019-07-06] MEDS: PRENATAL VITAMIN W DHA CAPSULE PO SCH (10:02)
[2019-07-06] MEDS: FAMOTIDINE 20 MG TABLET PO SCH (10:03)
[2019-07-06 12:01] VITALS: BP 136/74
== END 2019-07-06 14:28 | disposition home or self-care (01) | DRG 806 ==
LOC: LC 07:57 → LR 11:59 → 2S 17:00
PROVIDERS: ADMIT Obstetrics & Gynecology Gynecology; ATTEND Obstetrics & Gynecology Gynecology
PROC: 10E0XZZ Delivery of Products of Conception, External Approach (ICD-10-PCS; principal; 2019-07-04)
DX: O13.4 Gestational [pregnancy-induced] hypertension without significant proteinuria, complicating childbirth (principal); L05.01 Pilonidal cyst with abscess; Z37.0 Single live birth; O62.3 Precipitate labor; O99.72 Diseases of the skin and subcutaneous tissue complicating childbirth; O99.824 Streptococcus B carrier state complicating childbirth; O77.0 Labor and delivery complicated by meconium in amniotic fluid; Z87.891 Personal history of nicotine dependence; Z3A.39 39 weeks gestation of pregnancy
CPT/HCPCS: 36415; 80053; 80307; 81005; 83615; 84550; 85025; 86592; 86850; 86900; 86901; 88307; J1050; J2540; J2590; J3490; J7060

== ENCOUNTER 2019-08-05 11:45 | Emergency (ER) | payer OTHER, MEDICAID ==
--- NOTE | 2019-08-05 12:47 | ER Document Report ---
ED Blood Pressure Problem - General Chief Complaint: High Blood Pressure Stated Complaint: HIGH BLOOD PRESSUER Time Seen by Provider: 08/05/19 12:26 Notes: HPI: Patient is a 34-year-old female sent here by the EQUIPMENT MAINTENANCE TECH to check her "kidney function". Patient status post normal spontaneous vaginal delivery 1 month ago. No history of elevated blood pressure. This is her third child. Patient had some mildly elevated blood pressure readings during the course of her including the third trimester of around 150 systolic. Patient [facility] [place] after her had blood pressures reading in the 130s according to patient's report. Patient went to follow-up with the primary care EQUIPMENT MAINTENANCE TECH today and had multiple different blood pressure readings. One was 150 systolic. One was 130 systolic. One was 193/125. Patient was given a prescription for clonidine but sent here for evaluation of her kidney function according to the patient. Patient denies any headache, blurry vision, chest pain, leg swelling, fevers, weakness, shortness of breath, or other review of systems. ROS: See HPI All other review of systems reviewed and otherwise negative Reviewed vital signs and nursing note as charted by RN. PHYSICAL EXAM: CONSTITUTIONAL: Alert and oriented and responds appropriately to questions. Well-appearing; well-nourished HEAD: Normocephalic; atraumatic EYES: PERRL; full extraocular range of motion ENT: Normal nose; no rhinorrhea; moist mucous membranes; pharynx without lesions noted NECK: Supple; non-tender CARD: Regular rate and rhythm; no murmurs; symmetric distal pulses RESP: Normal chest excursion without splinting or tachypnea; breath sounds clear and equal bilaterally ABD/GI: Normal bowel sounds; non-distended; soft, non-tender EXT: No edema SKIN: No acute lesions noted NEURO: CN 2-12 intact; 5/5 bilateral upper and lower extremity strength with sensation intact to light touch PSYCH: The patient's mood and manner are appropriate. Grooming and personal hygiene are appropriate. TRAVEL OUTSIDE OF THE [place] IN LAST 30 DAYS: No - Related Data Allergies/Adverse Reactions: No Known Allergies Allergy (Verified 06/26/19 12:47) Past Medical History - Social History Smoking Status: Never Smoker Family History: Reviewed & Not Pertinent Patient has suicidal ideation: No Patient has homicidal ideation: No Renal/ Medical History: Denies: Hx Peritoneal Dialysis Physical Exam - Vital signs Vitals: Temp Pulse Resp BP Pulse Ox 99.0 F 86 18 186/101 H 99 08/05/19 11:51 08/05/19 11:51 08/05/19 11:51 08/05/19 11:51 08/05/19 11:51 Course - Re-evaluation Re-evalutation: 08/05/19 12:47 Given the above history and physical we will obtain basic labs and electrolytes and reassess. Patient denies any and all symptoms at this time. Patient is not tachycardic with initial blood pressure of 180/100. Patient is too far out from delivery for my concern to be eclampsia. Patient has no lower extremity edema, blurry vision, chest pain, or headaches at this time. 08/05/19 13:02 EKG shows heart of 68, normal sinus rhythm, normal axis, no ST elevation or depression 08/05/19 13:44 Labs as recorded. Patient still denies any symptoms. Patient will be discharged home with a prescription from EQUIPMENT MAINTENA[employer]CE [employer] for blood pressure management with strict return precautions. - Vital Signs Vital signs: Temp Pulse Resp BP Pulse Ox 99.0 F 86 18 186/101 H 99 08/05/19 12:08 08/05/19 11:51 08/05/19 11:51 08/05/19 11:51 08/05/19 11:51 - Laboratory Result Diagrams: 08/05/19 12:50 08/05/19 12:50 Discharge - Discharge Clinical Impression: Elevated blood pressure reading Condition: Good Disposition: HOME, SELF-CARE Additional Instructions: Come back immediately for any headache, blurry vision, chest pain, leg swelling, weakness or numbness, or any other acute problems. Please make sure that you follow-up with the primary care E[employer]IPMENT MAINTENANCE TECH for further assessment of your blood pressure management.
[2019-08-05 13:07] LABS: ABSOLUTE EOSINOPHILS # (AUTO) 0.4 10^3/uL (0.0-0.6); ABSOLUTE LYMPHOCYTES (AUTO) 2.2 10^3/uL (0.5-4.7); ABSOLUTE MONOCYTES (AUTO) 0.6 10^3/uL (0.1-1.4); ABSOLUTE NEUT (AUTO) 5.7 10^3/uL (1.7-8.2); BASOPHILS % (AUTO) 0.2 % (0-2); EOSINOPHILS % (AUTO) 4.4 % (0-6); HEMATOCRIT 44.9 % (36.0-47.0); HEMOGLOBIN 15.5 g/dL (12.0-15.5); LYMPHOCYTES % (AUTO) 24.9 % (13-45); MEAN CORPUSCULAR HGB CONC 34.6 g/dL (32.0-36.0); MEAN CORPUSCULAR VOLUME 89 fl (80-97); MONOCYTES % (AUTO) 6.5 % (3-13); PLATELET COUNT 239 10^3/uL (150-450); RED BLOOD COUNT 5.02 10^6/uL (3.72-5.28); RED CELL DISTRIBUTION WIDTH 13.4 % (11.5-14.0); TOTAL CELLS COUNTED % (AUTO) 100 %; WHITE BLOOD COUNT 8.9 10^3/uL (4.0-10.5)
[2019-08-05 13:22] LABS: ANION GAP 8 (5-19); BLOOD UREA NITROGEN 12 mg/dL (7-20); CARBON DIOXIDE 27 mmol/L (22-30); CHLORIDE 103 mmol/L (98-107); GLUCOSE 93 mg/dL (75-110); POTASSIUM 3.9 mmol/L (3.6-5.0)
[2019-08-05 13:53] VITALS: BP 192/98
--- NOTE | 2019-08-05 15:17 | EKG REPORT ---
SEVERITY:- NORMAL ECG - SINUS RHYTHM : Confirmed by: Aranza Ng MD 05-Aug-2019 15:16:45
== END 2019-08-05 13:53 | disposition home or self-care (01) ==
LOC: ER 11:45
DX: O90.89 Other complications of the puerperium, not elsewhere classified (principal); R03.0 Elevated blood-pressure reading, without diagnosis of hypertension
CPT/HCPCS: 36415; 80048; 85025; 93005; 93010; 99283

== ENCOUNTER 2019-10-17 08:50 | Day surgery (SDC) | payer OTHER, MEDICAID ==
[2019-10-14 10:41] LABS: HEMATOCRIT 39.5 % (36.0-47.0); HEMOGLOBIN 13.3 g/dL (12.0-15.5); MEAN CORPUSCULAR HGB CONC 33.7 g/dL (32.0-36.0); MEAN CORPUSCULAR VOLUME 89 fl (80-97); PLATELET COUNT 315 10^3/uL (150-450); RED BLOOD COUNT 4.44 10^6/uL (3.72-5.28); RED CELL DISTRIBUTION WIDTH 13.4 % (11.5-14.0); WHITE BLOOD COUNT 9.9 10^3/uL (4.0-10.5)
[2019-10-14 10:48] LABS: APPEARANCE,URINE CLEAR; BILIRUBIN,URINE NEGATIVE (NEGATIVE); COLOR,URINE YELLOW; GLUCOSE, URINE NEGATIVE (NEGATIVE); KETONES,URINE NEGATIVE (NEGATIVE); LEUKOCYTE ESTERASE,URINE NEGATIVE (NEGATIVE); NITRITE,URINE NEGATIVE (NEGATIVE); PROTEIN,URINE NEGATIVE (NEGATIVE); UROBILINOGEN,URINE NEGATIVE mg/dL (<2.0)
[~2019-10-17 08:50] MED LIST: LACTATED RINGERS 1000 ML IV PRN; LIDOCAINE 0.5% INJ-PF (5 MG/ML) 50 ML SDV SUBCUT PRN
[2019-10-17] MEDS ORDERED: FENTANYL CITRATE INJ/PF 250 MCG/5 ML AMPULE ONE (10:15)
[2019-10-17] MEDS ORDERED: PROPOFOL INJ 200 MG/20 ML VIAL IV ONE (10:15)
[2019-10-17] MEDS ORDERED: OXYCODONE-ACETAMINOPHEN 5-325 MG TABLET PO PRN ×4 (10:39→11:07)
[2019-10-17] MEDS ORDERED: MEPERIDINE HCL/PF INJ 25 MG/1 ML DISP.SYRIN IV PRN (10:39)
[2019-10-17] MEDS ORDERED: DIPHENHYDRAMINE HCL 50 MG/ML VIAL IV PRN (10:39)
[2019-10-17] MEDS ORDERED: MORPHINE SULFATE 10 MG/ML INJ IV PRN (10:39)
[2019-10-17] MEDS ORDERED: FENTANYL CITRATE INJ/PF 100 MCG/2 ML AMPUL IV PRN (10:39)
[2019-10-17] MEDS ORDERED: PROMETHAZINE HCL INJ 25 MG/1 ML VIAL IV PRN ×2 (10:39)
[2019-10-17] MEDS ORDERED: KETOROLAC TROMETHAMINE INJ/PF 30 MG/1 ML SDV IV PRN (11:07)
[2019-10-17] MEDS ORDERED: IBUPROFEN 800 MG TABLET PO PRN (11:07)
[2019-10-17] MEDS ORDERED: RINGERS SOLUTION,LACTATED 1,000 ML IV PRN (11:07)
--- NOTE | 2019-10-17 11:07 | Operative Report ---
Operative Report DATE OF SURGERY: 10/17/19 PREOPERATIVE DIAGNOSIS: Undesired fertility POSTOPERATIVE DIAGNOSIS: Same OPERATION: Laparoscopic tubal cauterization SURGEON: ULI GRACE 1ST ANESTHESIOLOGIST AND CRITICAL CARE: TRICIA EMMANUEL ANESTHESIA: GA COMPLICATIONS: None ESTIMATED BLOOD LOSS: 10 cc INTRAOPERATIVE FINDINGS: Normal uterus tubes and ovaries PROCEDURE: Patient was taken to the operating room prepared and draped in normal sterile fashion in dorsolithotomy position. Under sterile conditions and in and out cath was performed of approximately 30 cc of clear urine. A sterile speculum was then placed into the vagina the cervix was grasped with a single-tooth tenaculum on the anterior lip. A Hulka clamp was placed to the cervix for uterine manipulation without difficulty. The tenaculum and speculum were then removed. Change in attention was turned to the upper portion of the case where the umbilical skin incision was made. A varies needle was introduced through this incision and the abdomen was inflated with approximately 2 L of CO2 gas. Needle was removed and a 5 mm port was placed through the incision. The camera was introduced and the patient was placed in Trendelenburg with the above findings noted. Another 5 mm port was placed in the left lower quadrant. A blunt probe was introduced through this port and the bowel was swept away. A Kleppinger was then introduced through that port and beginning with the left fallopian tube the left fallopian tube was cauterized with approximately 3-1/2 cm. The occlusion was felt to be more than adequate. Repeated on the right fallopian tube without difficulty. Then removed and the abdomen was deflated through the umbilical port. Port sites were closed with 4-0 Vicryl. To recovery stable condition sponge lap and needle counts were correct x2..
--- NOTE | 2019-10-17 11:15 | Discharge Summary ---
Discharge Summary (SDC) - Discharge Final Diagnosis: Undesired fertility Date of Surgery: 10/17/19 Condition: Good Prescriptions: Oxycodone HCl/Acetaminophen [Percocet 5-325 mg Tablet] 1 tab PO Q4HP PRN #20 tablet PRN Reason: Ibuprofen [Motrin 800 mg Tablet] 800 mg PO NOW PRN #60 tablet PRN Reason: Discharge Diet: As Tolerated Respiratory Treatments at Home: Deep Breathing/Coughing Discharge Activity: Balance Activity w/Rest, No Driving, Pelvic Rest, No tub bath, Walk Frequently Home Care Assistance: None Needed Report the Following to Your Physician Immediately: Shortness of Breath, Nausea, Vomiting, Fever over 101 Degrees
[2019-10-17] MEDS ORDERED: OXYCODONE-ACETAMINOPHEN 5-325 MG TABLET ONE (11:46)
[2019-10-17 12:50] VITALS: BP 168/99
[2019-10-17] MEDS ORDERED: NEOSTIGMINE METHYLSULFATE 10 MG/10 ML VIAL ONE (13:33)
[2019-10-17] MEDS ORDERED: GLYCOPYRROLATE 1 MG/5 ML VIAL ONE (13:33)
[2019-10-17] MEDS ORDERED: ONDANSETRON HCL INJ/PF 4 MG/2 ML SDV ONE (13:33)
[2019-10-17] MEDS ORDERED: VECURONIUM BROMIDE INJ 10 MG VIAL IV ONE (13:33)
[2019-10-17] MEDS ORDERED: DEXAMETHASONE SOD PHOSPHATE INJ 4 MG/1 ML VIAL ONE (13:33)
[2019-10-17] MEDS ORDERED: ROCURONIUM BROMIDE INJ 50 MG/5 ML VIAL IV ONE (13:33)
[2019-10-17] MEDS ORDERED: LIDOCAINE 2% INJ-PF (20 MG/ML) 2 ML AMPUL ONE (13:33)
[2019-10-17] MEDS ORDERED: KETOROLAC TROMETHAMINE 60 MG/2 ML SDV ONE (13:33)
== END 2019-10-17 12:45 | disposition home or self-care (01) ==
LOC: OROUT 08:50
PROVIDERS: ATTEND Obstetrics & Gynecology
DX: Z30.2 Encounter for sterilization (principal); Z87.891 Personal history of nicotine dependence; Z79.899 Other long term (current) drug therapy; I10 Essential (primary) hypertension
CPT/HCPCS: 36415; 85027; 87635; 81005; 81025; 58670; J3490 ×4; J1100; J1885; J3010; J2710; J2405; J2704; C9803

== ENCOUNTER → 2019-11-15 | Outpatient (CLI) | payer OTHER, MEDICAID ==
[2019-11-15 09:46] VITALS: BP 136/67
--- NOTE | 2019-11-15 09:46 | ER RDC ASSESSMENT REPORT ---
Intake - In the Last 14 days Have you been in close contact with someone CONFIRMED: Yes Worked in Healthcare?: No - Symptoms Subjective Fever([place] feverish): No Chills: No Muscule Aches: No Runny Nose: No Sore Throat: No Cough (New or worsening chronic cough): No Shortness of breath: No Nausea or Vomiting: No Headache: No Abdominal Pain: No Diarrhea(3 or more loose stools in last 24 hours): No - Do you have any of the following Chronic lung disease: Asthma or emphysema or COPD: No Cystic Fibrosis: No Diabetes: No High Blood Pressure: No Cardiovascular Disease: No Chronic Kidney Disease: No Chronic Liver Disease: No Chronic blood disorder like Sickle Cell Disease: No Weak immune system due to disease or medication: No Neurologic condition that limits movement: No Developmental delay - Moderate to Severe: No Recent (within past 2 weeks) or current : No Morbid Obesity (>100 pounds over ideal weight): No Obesity Comment: Height 5 feet 7 inches weight 180 pounds - Objective Temperature: 98.0 F Pulse Rate: 68 Respiratory Rate: 18 Blood Pressure: 136/67 O2 Sat by Pulse Oximetry: 97 Objective: Given above, testing performed: If Testing Performed: Test Specimen Type Sent to General - General Information source: Patient Notes: Patient here at [facility] for COVID testing. Patient reports coworker had tested positive on Monday patient denies any symptoms but concerned. Patient also reports was not in close contact with this coworker. - Related Data Allergies/Adverse Reactions: No Known Allergies Allergy (Verified 10/17/19 09:18) Past Medical History - General Information source: Patient - Social History Smoking Status: Never Smoker Family History: Reviewed & Not Pertinent - Past Medical History Cardiac Medical History: Reports: Hx Hypertension Denies: Hx Coronary Artery Disease, Hx Heart Attack Pulmonary Medical History: Denies: Hx Asthma, Hx Bronchitis, Hx COPD, Hx Pneumonia Neurological Medical History: Denies: Hx Cerebrovascular Accident, Hx Seizures Renal/ Medical History: Denies: Hx Peritoneal Dialysis Musculoskeletal Medical History: Denies Hx Arthritis Physical Exam - General General appearance: Appears well, Alert In distress: None Notes: PHYSICAL EXAMINATION: GENERAL: Well-appearing and in no acute distress. HEAD: Atraumatic, normocephalic. EYES: sclera anicteric, conjunctiva are normal. ENT: nares patent. Moist mucous membranes. NECK: Normal range of motion, supple without lymphadenopathy LUNGS: CTAB and equal. No wheezes rales or rhonchi. Respirations even and unlabored. Lung sounds clear. HEART: Regular rate and rhythm without murmurs ABDOMEN: Soft, nontender, normal bowel sounds, no guarding. EXTREMITIES: No cyanosis. NEUROLOGICAL: Normal speech. PSYCH: Normal mood, normal affect. SKIN: Warm, Dry, normal turgor Diagnostic Results Laboratory Results: Ending COVID testing results. Patient provided instructions regarding COVID to include: As a person under investigation for Covid 19, the [facility], division of public health advises you to adhere to the following guidance until your test results are reported to you. If your test result is positive, you will receive additional information from your provider and your local health department at that time. Remain at home until you are cleared by the health provider or public health authorities. Keep a log of visitors to your home, notify any visitors to your home of your i solation status. If you plan to move to a new address or leave the [facility], notify the local health department in your County. Call your doctor or seek care if you have an urgent medical need. Before seeking medical care, call ahead to get instructions from the provider before arriving at the medical office clinic or hospital. Notify them that you are being tested for the virus that causes Covid 19 so that arrangements can be made, as necessary, to prevent transmission to others in the healthcare setting. Next, notify the local health department in your [facility]. If a medical emergency arises and you need to call 911, inform the first responders that you are being tested for the virus that causes Covid 19. Next, notify the local health department in your [facility]. Patient Education/Counseling Counseling/Education: Patient presents with upper respiratory symptoms worrisome for possible Covid 19. Patient does not have emergency worring symptoms such as difficulty breathing, shortness of breath, chest pain, pressure, confusion or cyanosis. Patient appears suitable for discharge. Patient instructed to follow-up at urgent care or to ED for any change in condition patient's vital signs are stable and patient is nontoxic in appearance. Good return precautions have been discussed with patient, patient verbalized understanding and is agreeable with discharge plan of care at this time. [facility] Discharge - Discharge Clinical Impression: Encounter for screening laboratory testing for COVID-19 virus in asymptomatic patient Condition: Stable Disposition: Home; Selfcare
== END ==
LOC: RDC 09:05
PROVIDERS: ATTEND Nurse Practitioner Family
DX: Z20.828 Contact with and (suspected) exposure to other viral communicable diseases (principal)
CPT/HCPCS: 87635; C9803; 99201; 99211

== ENCOUNTER 2020-02-11 02:27 | Emergency (ER) | payer OTHER, MEDICAID ==
--- NOTE | 2020-02-11 04:09 | ER Document Report ---
ED General - General Chief Complaint: Headache Stated Complaint: HEADACHE SEVERE Time Seen by Provider: 02/11/20 03:44 Primary Care Provider: [facility] [Provider Group] - Follow up as needed PATRICIA HYDE DO [ASSOCIATE] - Follow up as needed TRAVEL OUTSIDE OF THE [place] IN LAST 30 DAYS: No - HPI Notes: Patient is a 35 y/o female with a hx of HTN who presents with left ear pain and headache. Patient states her left ear pain started three days ago. Her headache began yesterday and she describes it as band-like around her forehead. She has used ear drops and ibuprofen with some relief. Patient states she was having a hard time sleeping due to her ear pain which caused her to come in. She denies fever, nasal congestion, sore throat, nausea, vomiting, and abdominal pain. She denies vision changes, blurred vision, dizziness, photophobia and phonophobia. - Related Data Allergies/Adverse Reactions: No Known Allergies Allergy (Verified 02/11/20 02:45) Home Medications: HTN Past Medical History - General Information source: Patient - Social History Smoking Status: Former Smoker Frequency of alcohol use: None Drug Abuse: None Family History: Reviewed & Not Pertinent - Past Medical History Cardiac Medical History: Reports: Hx Hypertension Denies: Hx Coronary Artery Disease, Hx Heart Attack Pulmonary Medical History: Denies: Hx Asthma, Hx Bronchitis, Hx COPD, Hx Pneumonia Neurological Medical History: Denies: Hx Cerebrovascular Accident, Hx Seizures Renal/ Medical History: Denies: Hx Peritoneal Dialysis Musculoskeletal Medical History: Denies Hx Arthritis - Immunizations Hx Diphtheria, Pertussis, Tetanus Vaccination: Yes Review of Systems - Review of Systems Constitutional: No symptoms reported EENT: See HPI Cardiovascular: No symptoms reported Respiratory: No symptoms reported Gastrointestinal: No symptoms reported Genitourinary: No symptoms reported Female Genitourinary: No symptoms reported Musculoskeletal: No symptoms reported Skin: No symptoms reported Hematologic/Lymphatic: No symptoms reported Neurological/Psychological: See HPI Physical Exam - Vital signs Vitals: Temp Pulse Resp BP Pulse Ox 99.1 F 102 H 20 140/78 H 100 02/11/20 02:37 02/11/20 02:37 02/11/20 02:37 02/11/20 02:37 02/11/20 02:37 - Notes Notes: PHYSICAL EXAMINATION: VITALS: Vitals reviewed. GENERAL: Well-appearing, well-nourished and in no acute distress. HEAD: Atraumatic, normocephalic. EYES: Pupils equal, round, and reactive to light, extraocular movements intact, sclera anicteric, conjunctiva are normal. ENT: Nares patent. Moist mucous membranes. Tenderness to the left tragus. Bilateral TMs clear with no erythema or bulging. NECK: Normal range of motion, supple without lymphadenopathy. No nuchal rigidity. LUNGS: Breath sounds clear to auscultation bilaterally and equal. No wheezes, rales, or rhonchi. HEART: Regular, rate, and rhythm without murmurs. ABDOMEN: Soft, nontender, normoactive bowel sounds. No guarding, no rebound. No masses appreciated. EXTREMITIES: Normal range of motion, no pitting or edema. No cyanosis. NEUROLOGICAL: No focal neurological deficits. CN II-XII grossly intact. Moves all extremities spontaneously and on command. PSYCH: Normal mood, normal affect. SKIN: Warm, Dry, normal turgor, no rashes or lesions noted. Course - Re-evaluation Re-evalutation: Patient is a 35 y/o female with a hx of HTN who presents with left ear pain and headache. Patient mildly tachycardic with a HR of 102. Vital signs are otherwise unremarkable and within normal limits. Presentation of a headache that appears to be most consistent with tension versus migrainous type headache. Headache was not maximal in onset, patient has no focal neurologic deficits, no nuchal rigidity, vital signs within normal limits, and patient is overall well in appearance. Based on clinical history and examination I do not suspect an acute subarachnoid hemorrhage, dural venous sinus thrombosis, acute meningitis, or intercranial mass. Given my low clinical suspicion for any acute life- threatening etiology, I do not feel advanced neuro imaging or laboratory testing is indicated at this time. Will proceed with headache cocktail and reassess. Compazine 10mg IV, Benadryl 25mg IV, Toradol 15mg IV, and 1L of NS IVF ordered. 02/11/20 06:00 Patient reassessed and she is feeling much better. Patient instructed to follow up with her primary care provider for her headache and to follow up with ENT for her left ear pain. Patient understands and is in agreement with plan. Patient will be discharged home. - Vital Signs Vital signs: Temp Pulse Resp BP Pulse Ox 99.1 F 102 H 20 125/65 100 02/11/20 02:37 02/11/20 02:37 02/11/20 02:37 02/11/20 06:13 02/11/20 02:37 Discharge - Discharge Clinical Impression: Left ear pain Headache Qualifiers: Headache type: tension-type Headache chronicity pattern: acute headache Intractability: not intractable Qualified Code(s): G44.209 - Tension-type headache, unspecified, not intractable Condition: Stable Disposition: HOME, SELF-CARE Additional Instructions: Follow up with ENT for your left ear pain. You have been seen in the Emergency Department (ED) for a headache. Please use Tylenol (acetaminophen) or Motrin (ibuprofen) as needed for symptoms, but only as written on the box. As we have discussed, please follow up with your primary care doctor as soon as possible regarding today's ED visit and your headache symptoms. Call your doctor or return to the ED if you have a worsening headache, sudden and severe headache, confusion, slurred speech, facial droop, weakness or numbness in any arm or leg, extreme fatigue, or other symptoms that concern you. Forms: Return to Work Referrals: PATRICIA HYDE DO [ASSOCIATE] - Follow up as needed [facility] [Provider Group] - Follow up as needed
[2020-02-11] MEDS ORDERED: NORMAL SALINE 1000 ML 1,000 ML IV ONE (04:12)
[2020-02-11] MEDS ORDERED: PROCHLORPERAZINE EDISYLATE INJ 10 MG/2 ML VIAL IV ONE (04:13)
[2020-02-11] MEDS ORDERED: DIPHENHYDRAMINE HCL 50 MG/ML VIAL IV ONE (04:14)
[2020-02-11] MEDS ORDERED: KETOROLAC TROMETHAMINE INJ/PF 30 MG/1 ML SDV IV ONE (04:14)
[2020-02-11 06:18] VITALS: BP 125/65
== END 2020-02-11 06:20 | disposition home or self-care (01) ==
LOC: ER 02:27
DX: G44.209 Tension-type headache, unspecified, not intractable (principal); H92.02 Otalgia, left ear; R00.0 Tachycardia, unspecified; I10 Essential (primary) hypertension; Z79.899 Other long term (current) drug therapy
CPT/HCPCS: 99284; 96361; 96374; 96375; J1200; J1885; J0780; J7030